=== PATIENT | male | born 1970 | race Caucasian/White ===

== ENCOUNTER 2017-01-20 16:10 | Emergency (ER) | payer BC ==
[~2017-01-20] VITALS: Ht 175.3 cm; Wt 81.6 kg
[2017-01-20 16:16] VITALS: BP_SYST 82
== END 2017-01-20 17:14 | disposition home or self-care (01) ==
LOC: ER 16:14
DX: H60.91 Unspecified otitis externa, right ear (principal); H71.91 Unspecified cholesteatoma, right ear
CPT/HCPCS: 99283; A4606; Z7610

== ENCOUNTER 2017-04-19 18:24 | Emergency (ER) | payer SELFPAY ==
[~2017-04-19] VITALS: Ht 175.3 cm; Wt 81.6 kg
[2017-04-19 18:41] VITALS: BP 105/70
[2017-04-19] MEDS ORDERED: TDAP [DIPH/PERTUSSIS/TET] 0.5 ML VIAL IM ONE ×2 (19:30→19:32)
== END 2017-04-19 19:37 | disposition home or self-care (01) ==
LOC: ER 18:25
DX: L03.011 Cellulitis of right finger (principal)
CPT/HCPCS: 10060; 90471; 90715; 99283; A4606; Z7610